=== PATIENT | female | born 1970 | race Caucasian/White ===

== ENCOUNTER 2016-04-26 18:01 | Inpatient (IN) | payer MEDICARE, SELFPAY ==
[2016-04-26] MEDS ORDERED: Albuterol/Ipratropium Neb 3 ML NEB NEB ONE (18:48)
[2016-04-26] MEDS ORDERED: METHYLPREDNISOLONE 125 MG/2 ML VIAL IV ONE (18:48)
[2016-04-26 19:13] LABS: LEUKOCYTES/URINE TRACE (NEGATIVE); NITRITE/URINE NEG (NEGATIVE); URINE OCCULT BLOOD 3+ (NEG/TRACE)
[2016-04-26 19:29] LABS: AUTOMATED BASOPHIL 0.9 % (0-2); AUTOMATED EOSINOPHIL 0.3 % (0-5); AUTOMATED LYMPH 7.6 % (17-44); AUTOMATED MONOCYTE 6.9 % (3-10); AUTOMATED NEUTROPHIL 84.3 % (45-76); MPV 8.8 fL (7.4-10.4)
--- NOTE | 2016-04-26 19:38 | DIRPT ---
CLINICAL DATA: Acute onset of shortness of breath, fever and congestion. Initial encounter. EXAM: CHEST 2 VIEW COMPARISON: Chest radiograph from 09/10/2015 FINDINGS: Patchy bibasilar airspace opacities are compatible with multifocal pneumonia. No pleural effusion or pneumothorax is seen. The heart is normal in size. No acute osseous abnormalities identified. IMPRESSION: Patchy bibasilar pneumonia noted. Electronically Signed By: Solo Goode M.D. On: 04/26/2016 19:35
[2016-04-26 19:42] LABS: BLOOD UREA NITROGEN 10 MG/DL (7-17); CALC CORRECTED 9.5 MG/DL (8.4-10.2); CALCIUM 9.1 MG/DL (8.4-10.2); CALCULATED OSMOLALITY 265 MOs/Kg (270-290); CHLORIDE 98 mEq/L (98-107); GLUCOSE 138 MG/DL (70-99); SODIUM LEVEL 137 mEq/L (137-146)
[2016-04-26 20:04] LABS: ALLEN'S TEST PASS; BEb 2.5 (+/- 2); TCO2 29.9 MMOL/L (23-27)
[2016-04-26 20:05] LABS: ABG Draw Site Right Radial
[2016-04-26] MEDS ORDERED: Levofloxacin 750 mg/150 ml D5W 750 MG/150 ML RTU IV ONE (20:08)
[2016-04-26] MEDS ORDERED: NS 1,000 ML IV ONE ×2 (20:08→22:01)
--- NOTE | 2016-04-26 20:13 | EDPRACDOC ---
- General Information Chief Complaint: Fever Stated Complaint: FEVER,COUGH CONGESTION Time Seen by Provider: 04/26/16 18:38 Mode Of Arrival: Car Home Medications: Home Medications Alprazolam [Xanax] 1 mg PO BID 05/15/12 Losartan/Hydrochlorothiazide [Losartan-Hctz 100-25 mg Tab] 1 tab PO DAILY Sertraline HCl [Zoloft] 100 mg PO DAILY 09/13/13 Albuterol Sulfate [Proair Hfa] 2 puff INH Q4H PRN 09/09/15 Cholecalciferol (Vitamin D3) [Vitamin D3] 2,000 unit PO DAILY 04/26/16 Gabapentin [Neurontin] 300 mg PO TID 04/26/16 Oxycodone HCl [Oxycodone Immediate Release] 15 mg PO Q8H PRN 04/26/16 Allergies/Adverse Reactions: Allergies Allergy/AdvReac Type Severity Reaction Status Date / Time No Known Allergies Allergy Verified 04/26/16 18:42 - History of Present Illness Onset: FEW DAYS HPI: PT HAS HAD SOB AND COUGH FOR THE PAST FEW DAYS. THE PT SAID THAT SHE HAD A FEVER UP TO 105. Shortness of Breath: Moderate Relevant History: Reports: COPD Cough: Reports: Non-productive Rhinorrhea: Reports: None Ear Symptoms: Reports: None SOB Worsens with: Reports: Exertion SOB Improves with: Reports: Nothing Associated Signs and symptoms: Reports: Cough - Treatment Prior to ED Arrival Reported Medications/Treatment [employer] Ibuprofen/Acetaminophen (Dose/ IBUPROFEN 400MG T1700 Time) ED Past Medical History - Patient Medical History Cardiac History: Reports: Hypertension Respiratory History: Reports: Asthma, COPD Musculoskeletal History: Reports: Arthritis Psychological History: Reports: Anxiety. Denies: Depression Additional Past Medical History: Chronic Back Pain Surgical History: Reports: Hysterectomy - Family Medical History Reports: Cancer (dad throat) - Social Medical History Smoking Status: Heavy tobacco smoker (5 or more cigarettes/day or daily pipe/ cigar) ETOH: None Substance Abuse: None Lives In: Home EDM Review of Systems - Review of Systems ROS Negative Except as Marked: Yes All systems reviewed and were negative except as marked Constitutional: Chills, Fever Respiratory: Cough, Shortness of Breath, Wheezing - Physical Exam Constitutional: Alert (Awake), No apparent distress Oriented to: Time, Person, Place Last recorded Vital Signs: Last Vital Signs Temp 99.7 F 01/14/17 18:33 Pulse 127 H 04/26/16 18:33 Resp 18 04/26/16 18:33 BP 137/68 04/26/16 18:33 Pulse Ox 92 04/26/16 18:33 Oxygen Pulse Oxygen Saturation 92 O2 Device Room Air Oxygen Flow Rate Fraction of Inspired Oxygen ( FIO2) - HEENT Head: Normal ( normocephalic) Eye Exam: Normal (PERRL, EOMI, Sclera white) Oropharynx: Normal (Pharynx:Moist without exudate,Gums-no swelling) ENT EAC: Normal TMJ: Normal Nose: No Symptoms Reported (septum midline) Neck: Normal (FROM, trachea at midline) - Respiratory/Cardiovascular Respiratory: Accessory Muscle Use, Rhonchi, Tachypnea Cardiovascular: Tachycardia - GI Auscultation: Normal (NABS) Palpation: Normal (Soft,No rebound or guarding, non distended) Tenderness: Non tender [place]'s Sign: Negative - Musculoskeletal Back: Normal (Non-Tender) Extremities: Normal (Normal tone, Pulses 2+ No cyanosis or edema, FROM) - Integumentary Skin: Normal, Warm, Dry Lymphatics: Normal (no adenopathy) - Neurologic Memory Impaired: Normal Motor Function: Normal (Normal tone, Pulses 2+ No cyanosis or edema, FROM) Cranial Nerve: Normal (CN II-X11 intact sensation, strength 5/5) Cerebellar: Normal Mood Description: Normal Thought: Coherent Perception: Normal ED SOB MDM - Results Result Diagrams: 04/26/16 19:20 04/26/16 19:20 Results: WBC 18.3 xk/uL (3.8-10.8) H 04/26/16 19:20 RBC 4.04 xM/uL (4.20-5.40) L 04/26/16 19:20 Hgb 12.3 g/dL (12.0-16.0) 04/26/16 19:20 Hct 36.7 % (36-47) 04/26/16 19:20 MCV 91 fL (81-99) 04/26/16 19:20 MCH 30.4 pg (27-32) 04/26/16 19:20 MCHC 33.5 g/dl (33-36) 04/26/16 19:20 RDW 14.9 % (11.5-14.5) H 04/26/16 19:20 Plt Count 208 xk/uL (130-400) 04/26/16 19:20 MPV 8.8 fL (7.4-10.4) 04/26/16 19:20 Neut % (Auto) 84.3 % (45-76) H 04/26/16 19:20 Lymph % (Auto) 7.6 % (17-44) L 04/26/16 19:20 [place] % (Auto) 6.9 % (3-10) 04/26/16 19:20 Eos % (Auto) 0.3 % (0-5) 04/26/16 19:20 Baso % (Auto) 0.9 % (0-2) 04/26/16 19:20 Absolute Neuts (auto) 15.37 xk/uL (1.7-8.2) H 04/26/16 19:20 Absolute Lymphs (auto) 1.28 xk/uL (0.65-4.75) 04/26/16 19:20 Puncture Site Right radial 04/26/16 19:47 pH 7.380 pH UNITS (7.35-7.45) 04/26/16 19:47 pCO2 48.0 mmHg (35-45) H 04/26/16 19:47 pO2 50.0 mmHg (80-100) L 04/26/16 19:47 HCO3 28.4 MMOL/L (22-26) H 04/26/16 19:47 Total CO2 29.9 MMOL/L (23-27) H 04/26/16 19:47 Base Excess 2.5 (+/- 2) H 04/26/16 19:47 FiO2 % 21% 04/26/16 19:47 Specimen Drawn By [facility] 04/26/16 19:47 Sodium 137 mEq/L (137-146) 04/26/16 19:20 Potassium 3.4 mEq/L (3.5-5.1) L 04/26/16 19:20 Chloride 98 mEq/L (98-107) 04/26/16 19:20 Carbon Dioxide 29 mMOL/L (22-33) 04/26/16 19:20 Anion Gap 13 mEq/L (8-16) 04/26/16 19:20 BUN 10 MG/DL (7-17) 04/26/16 19:20 Creatinine 0.60 MG/DL (0.52-1.04) 04/26/16 19:20 Estimated GFR (MDRD) > 60 mL/min (>=60) 04/26/16 19:20 Glucose 138 MG/DL (70-99) H 04/26/16 19:20 Calculated Osmolality 265 MOs/Kg (270-290) L 04/26/16 19:20 Calcium 9.1 MG/DL (8.4-10.2) 04/26/16 19:20 Corrected Calcium 9.5 MG/DL (8.4-10.2) 04/26/16 19:20 Total Bilirubin 0.4 MG/DL (0.2-1.3) 04/26/16 19:20 AST 39 IU/L (14-36) H 04/26/16 19:20 ALT 58 IU/L (9-52) H 04/26/16 19:20 Alkaline Phosphatase 90 IU/L (38-126) 04/26/16 19:20 Total Protein 7.0 G/DL (6.3-8.2) 04/26/16 19:20 Albumin 3.6 G/DL (3.5-5.0) 04/26/16 19:20 Urine Color Yellow 04/26/16 18:55 Urine Clarity Clear 04/26/16 18:55 Urine pH 6.0 (5.0-8.0) 04/26/16 18:55 Ur Specific [place] 1.005 (1.003-1.035) 04/26/16 18:55 Urine Protein Neg (NEG/TRACE) 04/26/16 18:55 Urine Glucose (UA) Trace (NEGATIVE) 04/26/16 18:55 Urine Ketones Neg (NEGATIVE) 04/26/16 18:55 Urine Occult Blood 3+ (NEG/TRACE) H 04/26/16 18:55 Urine Nitrite Neg (NEGATIVE) 04/26/16 18:55 Urine Bilirubin Neg (NEGATIVE) 04/26/16 18:55 Urine Urobilinogen <2.0 MG/DL (0-1) 04/26/16 18:55 Ur Leukocyte Esterase Trace (NEGATIVE) H 04/26/16 18:55 Urine RBC 5-10 (0-5) H 04/26/16 18:55 Urine WBC 2-5 (0-5) 04/26/16 18:55 Ur Epithelial Cells 1+ 04/26/16 18:55 Urine Bacteria Few (NEG/FEW) 04/26/16 18:55 Urine Mucus Occ (NEG/OCC) 04/26/16 18:55 Microbiology 04/26/16 19:20 Influenza Type A Antigen Screen - Final Nasal Washing/Aspirate Or Swab NEGATIVE Please note: A NEGATIVE result does not exclude an influenza virus infection. It is a presumptive result and, if required, confirmation should be done using either a virus culture or an FDA-cleared influenza A&B molecular assay. ("NORMAL" value = "NEGATIVE".) Influenza Type B Antigen Screen - Final NEGATIVE Please note: A NEGATIVE result does not exclude an influenza virus infection. It is a presumptive result and, if required, confirmation should be done using either a virus culture or an FDA-cleared influenza A&B molecular assay. ("NORMAL" value = "NEGATIVE".) Lab Results 04/26/16 04/26/16 04/26/16 19:47 19:20 19:20 WBC 18.3 H RBC 4.04 L Hgb 12.3 Hct 36.7 MCV 91 MCH 30.4 MCHC 33.5 RDW 14.9 H Plt Count 208 MPV 8.8 Neut % (Auto) 84.3 H Lymph % (Auto) 7.6 L [place] % (Auto) 6.9 Eos % (Auto) 0.3 Baso % (Auto) 0.9 Absolute Neuts (auto) 15.37 H Absolute Lymphs (auto) 1.28 Puncture Site Right radial pH 7.380 pCO2 48.0 H pO2 50.0 L HCO3 28.4 H Total CO2 29.9 H Base Excess 2.5 H FiO2 % 21% Specimen Drawn By [facility] Sodium 137 Potassium 3.4 L Chloride 98 Carbon Dioxide 29 Anion Gap 13 BUN 10 Creatinine 0.60 Estimated GFR (MDRD) > 60 Glucose 138 H Calculated Osmolality 265 L Calcium 9.1 Corrected Calcium 9.5 Total Bilirubin 0.4 AST 39 H ALT 58 H Alkaline Phosphatase 90 Total Protein 7.0 Albumin 3.6 Urine Color Urine Clarity Urine pH Ur Specific [place] Urine Protein Urine Glucose (UA) Urine Ketones Urine Occult Blood Urine Nitrite Urine Bilirubin Urine Urobilinogen Ur Leukocyte Esterase Urine RBC Urine WBC Ur Epithelial Cells Urine Bacteria Urine Mucus 04/26/16 18:55 WBC RBC Hgb Hct MCV MCH MCHC RDW Plt Count MPV Neut % (Auto) Lymph % (Auto) [place] % (Auto) Eos % (Auto) Baso % (Auto) Absolute Neuts (auto) Absolute Lymphs (auto) Puncture Site pH pCO2 pO2 HCO3 Total CO2 Base Excess FiO2 % Specimen Drawn By Sodium Potassium Chloride Carbon Dioxide Anion Gap BUN Creatinine Estimated GFR (MDRD) Glucose Calculated Osmolality Calcium Corrected Calcium Total Bilirubin AST ALT Alkaline Phosphatase Total Protein Albumin Urine Color Yellow Urine Clarity Clear Urine pH 6.0 Ur Specific [place] 1.005 Urine Protein Neg Urine Glucose (UA) Trace Urine Ketones Neg Urine Occult Blood 3+ H Urine Nitrite Neg Urine Bilirubin Neg Urine Urobilinogen <2.0 Ur Leukocyte Esterase Trace H Urine RBC 5-10 H Urine WBC 2-5 Ur Epithelial Cells 1+ Urine Bacteria Few Urine Mucus Occ - EKG EKG #1 EKG Time: 20:58 -: Yes EKG interpreted by me Rate: bpm: 92 [place]: Normal Rhythm: NSR Block: None Hypertrophy: None ST: Normal - Diagnostic Imaging Chest Image interpreted by: Radiologist Diagnostic Imaging Comments: Patchy bibasilar pneumonia noted. - Departure Yes I personally saw and evaluated the patient. Disposition: Admit IP To This Hospital Condition: Fair Final Diagnosis: Bilateral pneumonia, Fever, COPD exacerbation, Tobacco abuse, Acute respiratory failure with hypoxia Education/Counseling Given To: Patient Education/Counseling Given Regarding: Diagnosis, Treatment Decision to Admit Time: 20:12 Decision to admit date: 04/26/16 Decision to admit: from ED - Physician Consulted Hospitalist Provider Called: Dwayne Levine
--- NOTE | 2016-04-26 20:54 | HISTPHYS ---
- Chief Complaint shortness of breath - History of Present Illness PRIMARY CARE PROVIDER: Dr. Davie Aranda NEUROSURGEON: Dr. Abdoul Newman [place] HPI: The patient is a 45 yo woman who presents with fever, shortness of breath, and coughing. Fever around 100 on evening, coughing worsened. Today woke up and temp was 105.3, she took ibuprofen during day and eventually it decreased. Feels weak and achy all over. Shortness of breath that worsened each day to the point that she had difficulty walking due to shortness of breath. Onset: 2 days ago. Duration: intermittent. Location: generalized aching, more in back from coughing. Radiation: none. Character: severe fatigue, no energy. Alleviated by: Nothing. Exacerbated by: walking. Associated Symptoms: Coughing productive of yellow sputum but today not as much is coming up. Wheezing. Fever and chills. No chest pain but did have palpitations. Headache is only when she coughs or sits up, but it resolved now. Both arms with tingling numbness over the last month, found to have bilateral carpal tunnel. Treatments: none at home except usual medications. - Medical History Cardiac History: Reports: Hypertension Respiratory History: Reports: Asthma, COPD (does not wear oxygen at home.) Musculoskeletal History: Reports: Arthritis (chronic back pain.) Psychological History: Reports: Anxiety. Denies: Depression - Surgical History Reports: Other (Back surgery, carpal tunnel on R 2011. Tubal ligation 1992.) Most recent surgery 11/13/15, back surgery. L4-5 and S1. - Medictions/Allergies Allergies No Known Allergies Allergy (Verified 04/26/16 18:42) per pt Current Medication List: Reviewed Home Medications Alprazolam [Xanax] 1 mg PO BID 05/15/12 Losartan/Hydrochlorothiazide [Losartan-Hctz 100-25 mg Tab] 1 tab PO DAILY Sertraline HCl [Zoloft] 100 mg PO DAILY 09/13/13 Albuterol Sulfate [Proair Hfa] 2 puff INH Q4H PRN 09/09/15 Cholecalciferol (Vitamin D3) [Vitamin D3] 2,000 unit PO DAILY 04/26/16 Gabapentin [Neurontin] 300 mg PO TID 04/26/16 Oxycodone HCl [Oxycodone Immediate Release] 15 mg PO Q8H PRN 04/26/16 - Family History Reports: Cancer (Father: throat), Other (Mother: hyperlipidemia and no other issues.). Denies: Cardiac Disorders - Social History Smoking Status: Heavy tobacco smoker (5 or more cigarettes/day or daily pipe/ cigar) (5 cigs/day. Previously 1 ppd. Started 27 yo.) Social History: Denies: Alcohol Use, Substance Use Disorder - Review of Systems GENERAL: Fever and chills. Positive for fatigue/malaise. HEENT: No ear pain or discharge. No nasal discharge or bleeding. No throat pain or swelling. No eye pain or eye redness. RESPIRATORY: Cough, wheezing, and shortness of breath. CARDIOVASCULAR: No chest pain but did have palpitations. GI: No abdominal pain, nausea, vomiting, diarrhea, constipation, or bloody stool. NEUROLOGICAL: Headache is only when she coughs or sits up, but it resolved now. No new focal weakness. INTEGUMENT: no rashes, itching, or lesions. LYMPHATIC SYSTEM: no lymph node swelling or pain. MUSCULOSKELETAL: Generalized muscle aches, acute. No new joint pain or joint swelling. GENITOURINARY: No dysuria or hematuria. ENDOCRINE: No polyuria but lately has polydipsia because her mouth is dry.. HEME: No chronic anemia, bleeding, or easy bruising. - Physical Exam Vital Signs: Initial Vitals Temperature 99.7 F 04/26/16 18:33 Pulse Rate 127 H 04/26/16 18:33 Respiratory Rate 18 04/26/16 18:33 Blood Pressure 137/68 04/26/16 18:33 Pulse Oxygen Saturation 92 04/26/16 18:33 - Other Exam Other Exam Findings: GENERAL: Ill-appearing, well nourished, in acute distress. HEENT: Normocephalic, atraumatic; pupils equal and round. Nares patent, without discharge or bleeding. No oropharyngeal lesions or erythema. Mucous membranes are dry. NECK: is supple, no masses, trachea midline. RESPIRATORY: Clear to auscultation bilaterally. Chest wall movements are symmetric. No use of accessory muscles to breathe. Rhonchi in bases bilaterally. Scattered wheezing. No rales. CARDIOVASCULAR: Normal S1, S2. No murmurs, rubs, or gallops. PMI non-displaced. Carotids: no carotid bruits. Mild tachycardia. DP pulses 2+ bilaterally. GI: soft, nontender, non-distended, normal active bowel sounds. No hepatosplenomegaly. INTEGUMENT: Clean, dry, and intact. No rashes. No lesions. MUSCULOSKELETAL: Moving all extremities. No cyanosis. No clubbing. Edema: none bilaterally. NEUROLOGICAL: Cranial nerves 2-12 grossly intact. Motor 5/5 throughout upper extremities and 4/5 in lower extremities. Reflexes: 2+ bilaterally. Babinski: toes downgoing bilaterally. Intact Finger to nose. Sensory grossly intact to light touch. Intact rapid alternating movements bilaterally. No pronator drift. PSYCHIATRIC: Fully oriented. Normal and appropriate affect. LYMPHATIC: No cervical lymphadenopathy. No supraclavicular lymphadenopathy. - Lab Results Laboratory Results - last 24 hr 04/26/16 04/26/16 04/26/16 18:55 19:20 19:20 WBC 18.3 H RBC 4.04 L Hgb 12.3 Hct 36.7 MCV 91 MCH 30.4 MCHC 33.5 RDW 14.9 H Plt Count 208 MPV 8.8 Neut % (Auto) 84.3 H Lymph % (Auto) 7.6 L [place] % (Auto) 6.9 Eos % (Auto) 0.3 Baso % (Auto) 0.9 Absolute Neuts (auto) 15.37 H Absolute Lymphs (auto) 1.28 Puncture Site pH pCO2 pO2 HCO3 Total CO2 Base Excess FiO2 % Specimen Drawn By Sodium 137 Potassium 3.4 L Chloride 98 Carbon Dioxide 29 Anion Gap 13 BUN 10 Creatinine 0.60 Estimated GFR (MDRD) > 60 Glucose 138 H Calculated Osmolality 265 L Lactic Acid Calcium 9.1 Corrected Calcium 9.5 Total Bilirubin 0.4 AST 39 H ALT 58 H Alkaline Phosphatase 90 Total Protein 7.0 Albumin 3.6 Urine Color Yellow Urine Clarity Clear Urine pH 6.0 Ur Specific [place] 1.005 Urine Protein Neg Urine Glucose (UA) Trace Urine Ketones Neg Urine Occult Blood 3+ H Urine Nitrite Neg Urine Bilirubin Neg Urine Urobilinogen <2.0 Ur Leukocyte Esterase Trace H Urine RBC 5-10 H Urine WBC 2-5 Ur Epithelial Cells 1+ Urine Bacteria Few Urine Mucus Occ 04/26/16 04/26/16 19:47 20:31 WBC RBC Hgb Hct MCV MCH MCHC RDW Plt Count MPV Neut % (Auto) Lymph % (Auto) [place] % (Auto) Eos % (Auto) Baso % (Auto) Absolute Neuts (auto) Absolute Lymphs (auto) Puncture Site Right radial pH 7.380 pCO2 48.0 H pO2 50.0 L HCO3 28.4 H Total CO2 29.9 H Base Excess 2.5 H FiO2 % 21% Specimen Drawn By [place] Sodium Potassium Chloride Carbon Dioxide Anion Gap BUN Creatinine Estimated GFR (MDRD) Glucose Calculated Osmolality Lactic Acid 1.6 Calcium Corrected Calcium Total Bilirubin AST ALT Alkaline Phosphatase Total Protein Albumin Urine Color Urine Clarity Urine pH Ur Specific [place] Urine Protein Urine Glucose (UA) Urine Ketones Urine Occult Blood Urine Nitrite Urine Bilirubin Urine Urobilinogen Ur Leukocyte Esterase Urine RBC Urine WBC Ur Epithelial Cells Urine Bacteria Urine Mucus - Diagnostic Findings DIAGNOSTIC DATA: EK bpm. Normal sinus rhythm. Reviewed EKG personally. IMAGING: Chest x-ray, viewed personally: EXAM: CHEST 2 VIEW COMPARISON: Chest radiograph from 09/10/2015 FINDINGS: Patchy bibasilar airspace opacities are compatible with multifocal pneumonia. No pleural effusion or pneumothorax is seen. The heart is normal in size. No acute osseous abnormalities identified. IMPRESSION: Patchy bibasilar pneumonia noted. - Assessment (1) Sepsis A41.9 - SEPSIS, UNSPECIFIED ORGANISM Acute Present on Admission: Yes Qualifiers: Sepsis type: sepsis due to unspecified organism Qualified Code(s): A41.9 - Sepsis, unspecified organism Present on admission. Criteria: WBCs 18.3 and Pulse 96-127. Source: pneumonia. Plan: Sepsis order set. IV antibiotics: ceftriaxone and azithromycin. IV fluids to provide volume. Monitor for signs of volume depletion, monitor blood pressure carefully. If still hypotensive with IV fluids consider pressors. Close monitoring. Telemetry. IVF: initial IVF 30 mL/kg x 1, then 250 mL/hr x 1 L, then maintenance IVF. (2) Bacterial pneumonia J15.9 - UNSPECIFIED BACTERIAL PNEUMONIA Acute Present on Admission: Yes Pneumonia. Severe. Requiring continuous oxygen support. Type: Community acquired pneumonia. Criteria for diagnosis: Chest x-ray suggestive of pneumonia, rhonchi on physical exam. Likely bacterial. Plan: Sputum culture has been ordered. Treat with IV ceftriaxone and IV azithromycin. Monitor oxygen saturation levels. (3) Hypoxia R09.02 - HYPOXEMIA Acute Present on Admission: Yes Patient's PO2 is low. The patient actually met criteria for acute respiratory failure just before admission, but she is improving so will use hypoxemia diagnosis. Plan: Place patient on oxygen by Venti Mask 40% and increase as needed. Monitor oxygen saturation levels and keep O2 sats greater than 92%. (4) COPD exacerbation J44.1 - CHRONIC OBSTRUCTIVE PULMONARY DISEASE W (ACUTE) EXACERBATION Acute Present on Admission: Yes Patient has COPD, but minimal wheezing. Suspect the main cause of her respiratory distress is her pneumonia. COPD at baseline, with possible mild exacerbation. Plan: Nebs of Duoneb q 6 hours scheduled and albuterol q 2 hours prn. Sputum culture ordered. IV ceftriaxone and IV azithromycin. Consider IV methylprednisolone if no improvement. Continuous oxygen support. Keep sats below 95% due to COPD. (5) Hypokalemia E87.6 - HYPOKALEMIA Acute Present on Admission: Yes Replace potassium with KCl. Check magnesium level and replace as needed. (6) Tobacco abuse Z72.0 - TOBACCO USE Acute Present on Admission: Yes Counseled to quit. (7) Microscopic hematuria R31.29 - OTHER MICROSCOPIC HEMATURIA Acute Present on Admission: Yes Found incidentally on UA, 3+ blood. Plan: Repeat UA tomorrow. If still with hematuria then recommend to patient that she obtain an outpatient workup of her hematuria after discharge. Case Care Discussed with: Patient, Nursing Staff Total Time: 60 min
[2016-04-26] MEDS ORDERED: Non-Formulary Medication ITEM (Oxycodone Hcl [Oxycodone Immediate Release] 15 MG) PO PRN (22:04)
[2016-04-26] MEDS ORDERED: ONDANSETRON HCL 4 MG/2 ML VIAL IV PRN (22:06)
[2016-04-26] MEDS ORDERED: PROMETHAZINE 25 MG/ML VIAL IV PRN (22:06)
[2016-04-26] MEDS ORDERED: ALBUTEROL 0.083% 3 ML NEB NEB PRN (22:06)
[2016-04-26] MEDS ORDERED: SIMETHICONE 80 MG TAB PO PRN (22:06)
[2016-04-26] MEDS ORDERED: Docusate Sodium 100 MG CAP PO PRN (22:06)
[2016-04-26] MEDS ORDERED: GUAIFEN 100 MG-DEXTROMETH 10 MG PER 5 ML PO PRN (22:06)
[2016-04-26] MEDS ORDERED: BISACODYL 5 MG TAB PO PRN (22:06)
[2016-04-26] MEDS ORDERED: TEMAZEPAM 15 MG CAP PO PRN (22:06)
[2016-04-26] MEDS ORDERED: SENNA CONCENTRATE TAB PO PRN (22:06)
[2016-04-26] MEDS ORDERED: BENZONATATE 100 MG PERLES PO PRN (22:06)
[2016-04-26] MEDS ORDERED: ALPRAZOLAM 0.5 MG TAB PO SCH (23:00)
[2016-04-26] MEDS ORDERED: Vaccine Screening Complete SCH (23:00)
[2016-04-26] MEDS ORDERED: ALPRAZOLAM 0.5 MG TAB PO ONE (23:00)
[2016-04-26] MEDS ORDERED: Pharmacy Order Set Alert SCH (23:00)
[2016-04-26] MEDS: CEFTRIAXONE 1 GM in D5W 100 ML IV SCH (23:06)
[2016-04-26] MEDS: POTASSIUM CHLORIDE 20 MEQ TAB PO SCH (23:07)
[2016-04-26] MEDS: ENOXAPARIN 40 MG/0.4 ML PFS SQ SCH (23:08)
[2016-04-26] MEDS: GABAPENTIN 300 MG CAP PO SCH (23:09)
[2016-04-26] MEDS: OXYCODONE HCL 5 MG TABLET PO PRN (23:36)
[2016-04-26] MEDS: AZITHROMYCIN 500 MG in D5W 250 ML IV SCH (23:40)
[2016-04-27] MEDS ORDERED: NS 1,000 ML IV ONE (00:02)
[2016-04-27] MEDS: POTASSIUM CHLORIDE 20 MEQ TAB PO SCH ×3 (00:57→16:03)
[2016-04-27] MEDS: Albuterol/Ipratropium Neb 3 ML NEB NEB SCH ×4 (01:47→20:15)
[2016-04-27] MEDS: NS 1,000 ML IV SCH ×2 (04:00→22:54)
[2016-04-27 04:13] LABS: MPV 8.8 fL (7.4-10.4)
[2016-04-27] MEDS ORDERED: Magnesium Sulfate 2 gm/D5W 2 GM/50 ML RTU IV ONE (04:14)
[2016-04-27] MEDS: GABAPENTIN 300 MG CAP PO SCH ×3 (04:40→20:30)
[2016-04-27 04:44] LABS: BLOOD UREA NITROGEN 9 MG/DL (7-17); CALCIUM 8.8 MG/DL (8.4-10.2); CALCULATED OSMOLALITY 275 MOs/Kg (270-290); CHLORIDE 105 mEq/L (98-107); GLUCOSE 184 MG/DL (70-99); SODIUM LEVEL 141 mEq/L (137-146)
[2016-04-27] MEDS: METHYLPREDNISOLONE 40 MG/1 ML VIAL IV SCH ×2 (04:56→16:03)
[2016-04-27] MEDS ORDERED: FLU VACCINE (Afluria) 0.5 ML DOSE IM ONE (08:00)
[2016-04-27] MEDS ORDERED: HYDROCHLOROTHIAZIDE PO SCH (09:00)
[2016-04-27] MEDS ORDERED: LOSARTAN PO SCH (09:00)
[2016-04-27] MEDS ORDERED: Non-Formulary Medication ITEM (Cholecalciferol (Vitamin D3) [Vitamin D3] 2,000 UNIT) PO SCH (09:00)
[2016-04-27] MEDS ORDERED: [UNRECOGNIZED DRUG - OTHER] PO SCH (09:00)
[2016-04-27] MEDS: ALPRAZOLAM 0.5 MG TAB PO SCH ×2 (09:04→20:30)
[2016-04-27] MEDS: OXYCODONE HCL 5 MG TABLET PO PRN ×2 (09:04→18:41)
[2016-04-27] MEDS: SERTRALINE HCL 100 MG TAB PO SCH (09:06)
[2016-04-27] MEDS: LOSARTAN KCL/HCTZ 50-12.5 TAB PO SCH (09:06)
--- NOTE | 2016-04-27 09:41 | GENMEDPROG ---
Subjective Note: Patient in bed responsive follows commands.. Still acutely ill but not toxic- appearing. Visibly short of breath with audible rhonchi some wheezes. Coughing producing fair amount thick sputum no hemoptysis. Notes Reviewed: Yes Events from last night noted and discussed with Clinical Staff Current Medication List: Reviewed Currently: Reports: Cough, Wheezing, DERAS, SOB, Sputum, Tobacco Use/Hx, Reflux Sx DVT Prophylaxis: Yes - Physical Examination Vital Signs and I&O: Last Vital Signs Temp 97.9 F 04/27/16 08:00 Pulse 91 04/27/16 08:00 Resp 20 04/27/16 08:00 BP 110/60 04/27/16 08:00 Pulse Ox 99 04/27/16 08:00 Oxygen Pulse Oxygen Saturation 99 O2 Device Nasal Cannula Oxygen Flow Rate 2 Fraction of Inspired Oxygen ( 45 FIO2) Intake & Output 04/24/16 04/25/16 04/26/16 04/27/16 23:59 23:59 23:59 23:59 Intake Total 1340 2802 Output Total 2000 Balance 1340 802 Patient's weight 69.626 kg 70.261 kg General: Alert, Oriented x3, Cooperative, Mild distress HEENT: Normal, PERRLA, EOMI, Anicteric Sclera Neck: Non-tender, Normal inspection, Limited range of motion Lymphatics: Normal (no adenopathy) Respiratory: Accessory Muscle Use, Rhonchi, Tachypnea Cardiovascular: Regular rate, Normal S1, Normal S2, Murmurs GI: Normal bowel sounds, Soft, Non tender, No hepatospenomegaly, No masses, Obese Extremities/Musculoskeletal: DJD Skin: Warm,Dry and Intact, No rashes, No breakdown, No significant lesion Neurological: Normal Steady Gait, Normal speech, Cranial nerves 3-12 NL Psych/Mental Status: Anxious Lab/DI/Studies Reviewed: Allergies No Known Allergies Allergy (Verified 04/26/16 18:42) per pt Last Vital Signs Temp 97.9 F 04/27/16 08:00 Pulse 91 04/27/16 08:00 Resp 20 04/27/16 08:00 BP 110/60 04/27/16 08:00 Pulse Ox 99 04/27/16 08:00 04/27/16 03:30 04/27/16 03:30 Abnormal Lab Results 04/26/16 04/26/1604/26/17 18:55 19:20 19:20 WBC 18.3 H RBC 4.04 L Hgb Hct RDW 14.9 H Neut % (Auto) 84.3 H Lymph % (Auto) 7.6 L Absolute Neuts (auto) 15.37 H pCO2 pO2 HCO3 Total CO2 Base Excess Potassium 3.4 L Creatinine Glucose 138 H Calculated Osmolality 265 L AST 39 H ALT 58 H Urine Occult Blood 3+ H Ur Leukocyte Esterase Trace H Urine RBC 5-10 H 04/26/16 04/27/16 04/27/16 19:47 03:30 03:30 WBC 12.9 H RBC 3.74 L Hgb 11.4 L Hct 34.3 L RDW 14.8 H Neut % (Auto) Lymph % (Auto) Absolute Neuts (auto) pCO2 48.0 H pO2 50.0 L HCO3 28.4 H Total CO2 29.9 H Base Excess 2.5 H Potassium Creatinine 0.50 L Glucose 184 H Calculated Osmolality AST ALT Urine Occult Blood Ur Leukocyte Esterase Urine RBC Microbiology 04/26/16 19:20 Nasal Washing/Aspirate Or Swab Influenza Type A Antigen Screen - Final NEGATIVE Please note: A NEGATIVE result does not exclude an influenza virus infection. It is a presumptive result and, if required, confirmation should be done using either a virus culture or an FDA-cleared influenza A&B molecular assay. ("NORMAL" value = "NEGATIVE".) 04/26/16 19:20 Nasal Washing/Aspirate Or Swab Influenza Type B Antigen Screen - Final NEGATIVE Please note: A NEGATIVE result does not exclude an influenza virus infection. It is a presumptive result and, if required, confirmation should be done using either a virus culture or an FDA-cleared influenza A&B molecular assay. ("NORMAL" value = "NEGATIVE".) - Assessment (1) Acute respiratory failure with hypoxia Acute J96.01 - ACUTE RESPIRATORY FAILURE WITH HYPOXIA Comment/Plan: Continue O2 nebs and pulmonary toilet. Monitor pulmonary status. Repeat PA and lateral chest x-ray in the morning.. (2) Bacterial pneumonia Acute J15.9 - UNSPECIFIED BACTERIAL PNEUMONIA Comment/Plan: Continue IV antibiotics monitor cultures. Continue mucolytics and aggressive pulmonary toilet. (3) COPD exacerbation Acute J44.1 - CHRONIC OBSTRUCTIVE PULMONARY DISEASE W (ACUTE) EXACERBATION Comment/Plan: Continue nebulized bronchodilators and IV steroids. (4) Dehydration Acute E86.0 - DEHYDRATION Comment/Plan: IV fluids. (5) Chronic back pain Acute M54.9 - DORSALGIA, UNSPECIFIED; G89.29 - OTHER CHRONIC PAIN Qualifiers: Back pain location: low back pain Back pain laterality: right Sciatica presence: with sciatica Sciatica laterality: sciatica of right side Qualified Code(s): M54.41 - Lumbago with sciatica, right side; G89.29 - Other chronic pain Comment/Plan: Continue narcotic analgesics at home doses. (6) Hypokalemia Acute E87.6 - HYPOKALEMIA Comment/Plan: Replace and monitor Case Care Discussed with: Patient, Nursing Staff, Respiratory Therapy, Pharmacy Benefits Coordinator Education/Counseling Given To: Patient Education/Counseling Given Regarding: Diagnosis, Treatment, Prognosis, Follow Up Total Time: 45 min . Critical Care: No Code: 81209 (12+)
[2016-04-27 12:19] LABS: WBC/URINE 0-2 (0-5)
[2016-04-27 12:47] LABS: LEUKOCYTES/URINE NEG (NEGATIVE); NITRITE/URINE NEG (NEGATIVE); URINE OCCULT BLOOD NEG (NEG/TRACE)
[2016-04-27] MEDS: CHOLECALCIFEROL 1000 UNITS TAB PO SCH (13:17)
[2016-04-27] MEDS: GUAIFENESIN 600 MG LA TAB PO SCH (13:17)
[2016-04-27] MEDS: ENOXAPARIN 40 MG/0.4 ML PFS SQ SCH (20:31)
[2016-04-27] MEDS: CEFTRIAXONE 1 GM in D5W 100 ML IV SCH (22:52)
[2016-04-28] MEDS: AZITHROMYCIN 500 MG in D5W 250 ML IV SCH (00:12)
[2016-04-28] MEDS: Albuterol/Ipratropium Neb 3 ML NEB NEB SCH ×2 (01:48→08:28)
[2016-04-28 03:07] LABS: BLOOD UREA NITROGEN 12 MG/DL (7-17); CALCIUM 9.5 MG/DL (8.4-10.2); CALCULATED OSMOLALITY 267 MOs/Kg (270-290); CHLORIDE 102 mEq/L (98-107); GLUCOSE 154 MG/DL (70-99); SODIUM LEVEL 137 mEq/L (137-146)
[2016-04-28] MEDS: OXYCODONE HCL 5 MG TABLET PO PRN (04:14)
[2016-04-28 04:27] VITALS: BMI 30.9
[2016-04-28] MEDS: NS 1,000 ML IV SCH ×2 (05:48→11:40)
[2016-04-28] MEDS: METHYLPREDNISOLONE 40 MG/1 ML VIAL IV SCH (05:51)
[2016-04-28] MEDS: GABAPENTIN 300 MG CAP PO SCH (05:51)
[2016-04-28] MEDS: GUAIFENESIN 600 MG LA TAB PO SCH (08:23)
[2016-04-28] MEDS: SERTRALINE HCL 100 MG TAB PO SCH (08:23)
[2016-04-28] MEDS: POTASSIUM CHLORIDE 20 MEQ TAB PO SCH (08:24)
[2016-04-28] MEDS: ALPRAZOLAM 0.5 MG TAB PO SCH (08:24)
[2016-04-28] MEDS: LOSARTAN KCL/HCTZ 50-12.5 TAB PO SCH (08:26)
--- NOTE | 2016-04-28 10:03 | DIRPT ---
CLINICAL DATA: Respiratory failure, pneumonia, fever EXAM: CHEST 2 VIEW COMPARISON: 04/26/2016 FINDINGS: Cardiomediastinal silhouette is stable. Persistent patchy infiltrates bilateral lower lobe. No pulmonary edema. Slight worsening infiltrate/pneumonia left lower lobe retrocardiac best seen on lateral view. Mild degenerative changes thoracic spine. IMPRESSION: Persistent patchy infiltrates bilateral lower lobe. No pulmonary edema. Slight worsening infiltrate/pneumonia left lower lobe retrocardiac best seen on lateral view. Electronically Signed By: Cosmo Gage M.D. On: 04/28/2016 10:00
[2016-04-28 11:11] VITALS: BP 113/61; TEMP 98.1
[2016-04-28] MEDS: CHOLECALCIFEROL 1000 UNITS TAB PO SCH (11:35)
[2016-04-28 12:16] VITALS: PULSE 75
--- NOTE | 2016-04-28 12:24 | PCM.DCS92 ---
- Final/Secondary Discharge Diagnosis (1) Acute respiratory failure with hypoxia Resolved J96.01 - ACUTE RESPIRATORY FAILURE WITH HYPOXIA Present on Admission: Yes Comment: Clinically improved. Exercise pulse ox 93% on room air. (2) Bacterial pneumonia Acute J15.9 - UNSPECIFIED BACTERIAL PNEUMONIA Present on Admission: Yes Comment: Continue po antibiotics monitor cultures. Continue mucolytics and aggressive pulmonary toilet. (3) COPD exacerbation Acute J44.1 - CHRONIC OBSTRUCTIVE PULMONARY DISEASE W (ACUTE) EXACERBATION Present on Admission: Yes Comment: Continue nebulized bronchodilators and po steroids. (4) Dehydration Resolved E86.0 - DEHYDRATION Present on Admission: Yes Comment: IV fluids. (5) Chronic back pain Chronic M54.9 - DORSALGIA, UNSPECIFIED; G89.29 - OTHER CHRONIC PAIN Present on Admission: Yes low back pain right with sciatica sciatica of right side M54.41 - Lumbago with sciatica, right side; G89.29 - Other chronic pain Comment: Continue narcotic analgesics at home doses. (6) Hypokalemia Acute E87.6 - HYPOKALEMIA Present on Admission: Yes Comment: Replace and monitor Discharge Disposition: Home Discharge Condition: Improved Cognitive Discharge Status: Unimpaired Fuctional Discharge Status: Independent Physician Follow up/Referrals: Davie Aranda MD [Primary Care Provider] - 3-4 Days New Prescriptions: Amoxicillin/Potassium Clav [Augmentin 875-125 Tablet] 1 each PO TIDAC #21 tablet Albuterol/Ipratropium Neb [Duoneb] 3 ml NEB Q6H #120 nebu Levofloxacin [Levaquin] 750 mg PO DAILY #7 tablet Guaifenesin [Mucinex] 1,200 mg PO BID #20 tbmp.12hr Prednisone 10 mg PO DAILY #30 tab.ds.pk O2 Device: Room Air Diet at Discharge: Heart Healthy, Low Salt, High Fiber Activity: As Tolerated Call Office For: Worsening Symptoms, Fever over 101 F Discontinue use of:: Alcohol, All Illegal Substances, All Types of Tobacco - DC Summary Notes Hospital Course Note:: Discharge summary on patient named SAMIR GILL admitted to [facility] on 04/26/16 by Dwayne Levine MD. Date of discharge is []. Patient has initially presented to emergency room on April 26 for evaluation of worsening difficulties breathing cough yellowish phlegm production chest tightness wheezes fevers and shaking chills. Please refer the admission for further details. Upon arrival in ED patient was found hypoxic tachypneic febrile and tachycardic. Her PaO2 was only 50 on room air. Chest x- ray showed patchy bibasilar pneumonia. Treatment of IV antibiotics nebulized bronchodilators supplemental O2 and IV steroids was instituted and patient is admitted to monitor bed. Outpatient regimen for chronic medical conditions was continued. Patient pulmonary status has slowly but progressively improved and stabilized, and she was weaned off oxygen. Her exercise pulse ox on room air was 93% prior to discharge. Blood cultures and urine cultures showed no growth , test for flu and negative. Smoking cessation counseling was provided the patient during the hospital stay. Her activity level was gradually advanced and by time of discharge patient is able to ambulate freely with minimal exertional dyspnea. On April 28 patient insisted being discharged home and in clinically stable improved condition she has been discharge to the care of her family and her PCP. Total Time: 40 min . Code: 20276 (>30min.) - Physical Exam Vital Signs: Last Vital Signs Temp 98.1 F 04/28/16 11:11 Pulse 75 04/28/16 12:00 Resp 18 04/28/16 11:11 BP 113/61 04/28/16 11:11 Pulse Ox 94 04/28/16 11:11 Oxygen Pulse Oxygen Saturation 94 O2 Device Room Air Oxygen Flow Rate 2 Fraction of Inspired Oxygen ( 45 FIO2) Constitutional: Alert (Awake), No apparent distress Oriented to: Time, Person, Place - HEENT Head: Normal ( normocephalic) Eye: Normal (PERRL, EOMI, Sclera white) Oropharynx: Normal (Pharynx:Moist without exudate,Gums-no swelling) ENT EAC: Normal TMJ: Normal Nose: No Symptoms Reported (septum midline) - Respiratory/Cardiovascular Respiratory: Diminished, Rhonchi Cardiovascular: Normal, Systolic murmur - GI Auscultation: Normal (NABS) Palpation: Normal (Soft,No rebound or guarding, non distended) Tenderness: Non tender Kearney's Sign: Negative Rectal Exam: Deferred - Exam Deferred: Yes - Musculoskeletal Back: Normal (Non-Tender) Extremities: Normal (Normal tone, Pulses 2+ No cyanosis or edema, FROM) - Integumentary Skin: Normal, Warm, Dry Lymphatics: Normal (no adenopathy) - Neurologic Memory Impaired: Normal Motor Function: Normal Cranial Nerve: Normal Cerebellar: Normal Mood Description: Normal, Anxious Thought: Coherent Perception: Normal - Other Exam Other Exam Findings: Allergies No Known Allergies Allergy (Verified 04/26/16 18:42) per pt Last Vital Signs Temp 98.1 F 04/28/16 11:11 Pulse 75 04/28/16 12:00 Resp 18 04/28/16 11:11 BP 113/61 04/28/16 11:11 Pulse Ox 94 04/28/16 11:11 04/27/16 03:30 04/28/16 02:20 Abnormal Lab Results 04/27/16 04/28/16 07:15 02:20 Creatinine 0.50 L Glucose 154 H Calculated Osmolality 267 L Urine Protein 1+ H Urine Glucose (UA) 3+ H Urine RBC 10-20 H Microbiology 04/27/16 07:15 Urine - Clean Catch - Midstream Urine Culture - Final No growth <10,00O CFU/ml 04/26/16 19:20 Nasal Washing/Aspirate Or Swab Influenza Type A Antigen Screen - Final NEGATIVE Please note: A NEGATIVE result does not exclude an influenza virus infection. It is a presumptive result and, if required, confirmation should be done using either a virus culture or an FDA-cleared influenza A&B molecular assay. ("NORMAL" value = "NEGATIVE".) 04/26/16 19:20 Nasal Washing/Aspirate Or Swab Influenza Type B Antigen Screen - Final NEGATIVE Please note: A NEGATIVE result does not exclude an influenza virus infection. It is a presumptive result and, if required, confirmation should be done using either a virus culture or an FDA-cleared influenza A&B molecular assay. ("NORMAL" value = "NEGATIVE".)
== END 2016-04-28 13:44 | disposition home or self-care (01) | DRG 871 ==
LOC: ED 18:01 → PCU 20:50
PROVIDERS: ADMIT Internal Medicine; ATTEND Internal Medicine
PROC: 039B3ZZ Drainage of Right Radial Artery, Percutaneous Approach (ICD-10-PCS; principal; 2016-04-26)
DX: A41.9 Sepsis, unspecified organism (principal); J96.01 Acute respiratory failure with hypoxia; J15.9 Unspecified bacterial pneumonia; J44.1 Chronic obstructive pulmonary disease with (acute) exacerbation; J44.0 Chronic obstructive pulmonary disease with (acute) lower respiratory infection; R65.20 Severe sepsis without septic shock; E86.0 Dehydration; Z71.6 Tobacco abuse counseling; G89.29 Other chronic pain; E87.6 Hypokalemia; I10 Essential (primary) hypertension; J45.909 Unspecified asthma, uncomplicated; F17.210 Nicotine dependence, cigarettes, uncomplicated; Z79.899 Other long term (current) drug therapy; Z23 Encounter for immunization
CPT/HCPCS: 36415; 36600; 71020; 80048; 80053; 81001; 82803; 83605; 83735; 85025; 85027; 87040; 87086; 87804; 90471; 90656; 93005; 94640; 96365; 96372; 96375; 98960; 99283; 99406; J0456; J0696; J1650; J1956; J2920; J2930; J3475; J3490; J7060; J7070; J7620